=== PATIENT | male | born 1950 | race African-American/Black ===

== ENCOUNTER → 2021-07-18 11:21 | Outpatient (BNVA) | payer MEDICARE, SELFPAY | PROVIDERS: PCP Internal Medicine; Visit Provider Urology | DX: N40.1 Benign prostatic hyperplasia with lower urinary tract symptoms (principal); N13.8 Other obstructive and reflux uropathy; N52.9 Male erectile dysfunction, unspecified | CPT/HCPCS: Q3014 ==

== ENCOUNTER → 2022-10-07 14:06 | Outpatient (BNVA) | payer MEDICARE, SELFPAY | PROVIDERS: PCP Internal Medicine; Visit Provider Urology | DX: Z13.89 Encounter for screening for other disorder (principal) ==

== ENCOUNTER 2024-02-09 14:07 | Outpatient (AMB) | payer MEDICARE, SELFPAY ==
--- NOTE | 2024-02-09 14:12 | A.OFFVIS_ITS ---
Intake Visit Reasons: PSA Follow up(set) Intake Note: Patient presents today for a follow-up on PSA RESULT: Meds- Sildenafil Allergies to Antibiotic- No Known Allergies Blood Thinner- None Lacing Operator Required: No Information Interpreted: non-clinical & clinical Accompanied by: Self / Same As Patient Allergies No Known Allergies Allergy (Verified 02/09/24 14:14) HPI Comments Details: Mr Saunders is a very pleasant male. They are a patient of Dr Platt. They are seen in the office today for the following urologic conditions. 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 PSA - 05/27 4.3, 11/27 2.4 Erectile dysfunction:? Generic sildenafil ? He presents today for?for continued evaluation and management of erectile dysfunction.? Symptoms have been present for/since?2011.? Current treatment includes?Viagra/sildenafil 100 mg.? Treatment side effects include?none.? Prior therapies include?oral medications.? At this time he experiences erections?are full, rigid and adequate for vaginal penetration, that last until ejaculation, JACOB 17-21 Mild ED.? Currently they are?in a stable relationship ? Associated problems? hypertension Yes ? diabetes No ? dyslipidemia No ? depression No ? stress No ? decreased libido No ? pelvic surgery No ? Overall he is satisfied with the current management PFSH Medical History (Updated 07/18/21 @ 11:52 by Jose Delvalle MD) HTN (hypertension) Social History (Updated 07/18/21 @ 11:25 by Carey Lin CMA) Alcohol intake: current Alcohol intake frequency: holidays/special occasions only Patient Tobacco Use Status: Former Tobacco user Review of Systems Const All systems reviewed & are unremarkable except as noted in HPI and below Reports no additional complaints Resp Reports no additional complaints GI Reports no additional complaints Reports as per HPI Musc Reports no additional complaints Physical Exam Telemedicine evaluation Appropriate responses Regular breathing rate and rhythm HEENT Head: Yes normal to inspection Ears: hearing grossly normal bilaterally Eyes General: appearance normal, both eyes and all related structures Neck Neck: Yes normal visual inspection Chest Chest palpation & inspection: normal inspection of the chest Resp Effort & Inspection: normal respiratory effort and able to speak in complete sentences Telehealth Telehealth Telehealth Platform: [employer] Location of provider rendering services: practice address Location of patient: address on file Patient Identification confirmed using: Name, : Yes Telehealth method: video Patient verbally consented to treatment: Yes Patient verbally consented to billing insurance company: Yes Patient informed of any privacy concerns related to visit: Yes Minutes spent on Phone/Video with Pt.: 15 Assessment & Plan Assessment & Plan (1) BPH w urinary obs/LUTS: Code(s): N40.1 - Benign prostatic hyperplasia with lower urinary tract symptoms; N13.8 - Other obstructive and reflux uropathy Category: Medical (2) Erectile dysfunction: Code(s): N52.9 - Male erectile dysfunction, unspecified Category: Medical Plan Six-month follow-up New prescription provided Medications: New tadalafil 5 mg PO DAILY 90 tabs 1RF sexual activity 90 days N52.9 - Male erectile dysfunction, unspecified Changed From sildenafil administer 60 minutes before intended activity 100 mg PO DAILY 90 days PRN 12 tabs 3RF sexual activity N52.9 - Male erectile dysfunction, unspecified To sildenafil administer 60 minutes before intended activity 100 mg PO DAILY PRN 30 tabs 1RF sexual activity 30 days N52.9 - Male erectile dysfunction, unspecified Patient Instructions: Imaging studies, laboratory and physical exam results were discussed and reviewed in detail. No major barriers to patient understanding were identified. An opportunity to ask questions regarding the treatment plan was provided. All questions were answered. The patient expressed understanding and agreement with the above treatment plan. The patient is aware they should contact our office by phone for worsening of their current condition or the appearance of new urologic symptoms. Compliance is encouraged with any medications and followup testing that is ordered. It is a privilege to participate in the urologic care of your patient. If you have any questions or concerns regarding treatment for the above conditions, or other urologic issues, please do not hesitate to contact me. The office telephone contact is [phone]. This note is constructed using voice recognition software. While every effort has been made to ensure accuracy tool builder errors may have been included. Yours sincerely, Dr Jose Delvalle MD, [facility] Urology Providers of Expert, Compassionate Care for the Genitourinary System Coding Level of Care Code Tele Est Pt Level 4 (32957) Diagnoses BPH w urinary obs/LUTS N40.1; N13.8 Erectile dysfunction N52.9
== END 2024-02-09 14:40 | disposition home or self-care (01) ==
LOC: HO.HUSH 14:07
PROVIDERS: PCP Internal Medicine; Visit Provider Urology
DX: N40.1 Benign prostatic hyperplasia with lower urinary tract symptoms (principal); N13.8 Other obstructive and reflux uropathy; N52.9 Male erectile dysfunction, unspecified
CPT/HCPCS: 99213

== ENCOUNTER → 2024-02-09 14:07 | Outpatient (BNVA) | payer MEDICARE, SELFPAY | PROVIDERS: PCP Internal Medicine; Visit Provider Urology ==